=== PATIENT | female | born 1970 | race Caucasian/White ===

== ENCOUNTER 2017-04-05 15:15 | Emergency (ER) | payer OTHER ==
[2017-04-05 15:21] VITALS: BMI 20.3
--- NOTE | 2017-04-05 15:47 | PDOC ---
History of Present Illness - History of Present Illness Initial Comments: 04/05/17 15:50 The patient is a 46 year old female, with no significant past medical history, who presents to the emergency department, sent by PMD, for evaluation of persistent headache with diffuse body weakness for a couple of days. The patient states her headache is constant and diffuse. She denies dizziness. The patient states she has been experiencing difficulty speaking and moving at night before bed. The patient states she has also been experiencing a stiffness in her neck. She denies chest pain, shortness of breath, dizziness. She denies fever, chills , nausea, vomit, diarrhea and constipation. She denies dysuria, frequency, urgency and hematuria. Allergies: penicillins PCP - Dr. Riley Hernandez <Massiel Moyer - Last Filed: 04/05/17 16:45> <Clement Lackey - Last Filed: 04/05/17 19:23> - General Chief Complaint: Headache Stated Complaint: HEAD PAIN Time Seen by Provider: 04/05/17 15:31 Past History <Massiel Moyer - Last Filed: 04/05/17 16:45> - Surgical History Appendectomy: Yes - Reproductive History (#): 2 Para: 1 - Psycho/Social/Smoking Cessation Hx Suicidal Ideation: No Smoking History: Never smoked <Clement Lackey - Last Filed: 04/05/17 19:23> - Past Medical History Allergies/Adverse Reactions: Allergies Allergy/AdvReac Type Severity Reaction Status Date / Time Penicillins Allergy Verified 04/05/17 15:18 Home Medications: Ambulatory Orders NK [No Known Home Medication] 06/16/16 Review of Systems - Review of Systems Able to Perform ROS?: Yes Comments:: 04/05/17 16:50 GENERAL/CONSTITUTIONAL: (+) generalized weakness. No fever or chills. HEAD, EYES, EARS, NOSE AND THROAT: No change in vision. No ear pain or discharge. No sore throat. CARDIOVASCULAR: No chest pain or shortness of breath. RESPIRATORY: No cough, wheezing, or hemoptysis. GASTROINTESTINAL: No nausea, vomiting, diarrhea or constipation. GENITOURINARY: No dysuria, frequency, or change in urination. MUSCULOSKELETAL: (+) neck stiffness and diffuse body aches. No joint swelling. SKIN: No rash NEUROLOGIC: (+) headache and body weakness. No vertigo, loss of consciousness, or change in sensation. ENDOCRINE: No increased thirst. No abnormal weight change. HEMATOLOGIC/LYMPHATIC: No anemia, easy bleeding, or history of blood clots. ALLERGIC/IMMUNOLOGIC: No hives or skin allergy. <Massiel Moyer - Last Filed: 04/05/17 16:45> *Physical Exam - Vital Signs Last Vital Signs Temp Pulse Resp BP Pulse Ox 98 F 84 18 149/83 99 04/05/17 15:18 04/05/17 15:18 04/05/17 15:18 04/05/17 15:18 04/05/17 15:18 - Physical Exam Comments: 04/05/17 16:51 GENERAL: Awake, alert, and fully oriented, in no acute distress HEAD: No signs of trauma EYES: PERRLA, EOMI, sclera anicteric, conjunctiva clear ENT: Auricles normal inspection, hearing grossly normal, nares patent, oropharynx clear without exudates. Moist mucosa NECK: Normal ROM, supple, no lymphadenopathy, JVD, or masses LUNGS: Breath sounds equal, clear to auscultation bilaterally. No wheezes, and no crackles HEART: Regular rate and rhythm, normal S1 and S2, no murmurs, rubs or gallops ABDOMEN: Soft, nontender, normoactive bowel sounds. No guarding, no rebound. No masses EXTREMITIES: Normal range of motion, no edema. No clubbing or cyanosis. No cords, erythema, or tenderness NEUROLOGICAL: Cranial nerves II through XII grossly intact. Normal speech, normal gait SKIN: Warm, Dry, normal turgor, no rashes or lesions noted. <Massiel Moyer - Last Filed: 04/05/17 16:45> - Vital Signs Last Vital Signs Temp Pulse Resp BP Pulse Ox 98 F 84 18 149/83 99 04/05/17 15:18 04/05/17 15:18 04/05/17 15:18 04/05/17 15:18 04/05/17 15:18 <Clement Lackey - Last Filed: 04/05/17 19:23> ED Treatment Course - LABORATORY CBC & Chemistry Diagram: 04/05/17 16:01 04/05/17 16:01 <Massiel Moyer - Last Filed: 04/05/17 16:45> - LABORATORY CBC & Chemistry Diagram: 04/05/17 16:01 04/05/17 16:01 <Clement Lackey - Last Filed: 04/05/17 19:23> *DC/Admit/Observation/Transfer - Attestations Scribe Attestion: 04/05/17 16:52 Documentation prepared by Massiel Moyer, acting as biomedical service engineer for Clement Lackey DO <Massiel Moyer - Last Filed: 04/05/17 16:45> - Discharge Dispostion Admit: No - Attestations Physician Attestion: 04/05/17 15:31 I, Dr. Clement Lackey, attest that this document has been prepared under my direction and personally reviewed by me in its entirety. I further attest, that it accurately reflects all work, treatment, procedures and medical decision -making performed by me. <Clement Lackey - Last Filed: 04/05/17 19:23> Diagnosis at time of Disposition: Malaise Fatigue Qualifiers: Fatigue type: unspecified Qualified Code(s): R53.83 - Other fatigue - Discharge Dispostion Disposition: HOME Condition at time of disposition: Good - Referrals Referrals: Riley Hernandez MD [Primary Care Provider] - - Patient Instructions Printed Discharge Instructions: DI for Headache, DI for Fatigue Additional Instructions: [facility]- All of your tests are normal. It is not clear to me why you had this headache and weakness or inability to move. Follow up with your doctor in the morning. Return if worse or new symptoms occur Best- Dr. Clement Lackey
[2017-04-05 16:25] LABS: BASOPHIL 0.7 % (0-2.0); EOSINOPHIL 1.1 % (0-4.5); MCH 30.9 pg (25.7-33.7); MCHC 34.1 g/dl (32.0-36.0); MEAN CELL VOLUME 90.7 fl (80-96); MEAN PLT VOLUME 8.9 fl (7.5-11.1); NEUTROPHILS 64.4 % (42.8-82.8); PLATELET COUNT 208 K/MM3 (134-434); RDW 13.4 % (11.6-15.6); WHITE BLOOD COUNT 5.5 K/mm3 (4.0-10.0)
[2017-04-05 17:04] LABS: URINE APPEARANCE CLEAR; URINE BILIRUBIN NEGATIVE (NEGATIVE); URINE COLOR COLORLESS; URINE GLUCOSE (UA) NEGATIVE (NEGATIVE); URINE KETONE NEGATIVE (NEGATIVE); URINE LEUK ESTERASE NEGATIVE (NEGATIVE); URINE NITRITE NEGATIVE (NEGATIVE); URINE PROTEIN NEGATIVE (NEGATIVE); URINE UROBILINOGEN NEGATIVE E.U./dl (0.2-1.0)
[2017-04-05 17:07] LABS: URINE BLOOD 2+ (NEGATIVE)
[2017-04-05 17:10] LABS: URINE BACTERIA RARE /hpf (NONE SEEN); URINE RBC 4 /hpf (0-3); URINE WBC 1 /hpf (3-5)
[2017-04-05 17:53] LABS: INR 1.07 (0.82-1.09); PROTHROMBIN TIME (PATIENT) 11.8 SEC (9.98-11.88)
[2017-04-05 19:29] LABS: ALBUMIN 4.1 g/dl (3.4-5.0); ANION GAP 7 (8-16); CALCIUM 9.9 mg/dL (8.5-10.1); CO2 28 mmol/L (21-32); CREATININE 0.7 mg/dL (0.55-1.02); GLUCOSE,RANDOM 80 mg/dL (74-106); SGOT/AST 12 U/L (15-37)
[2017-04-05 19:31] LABS: ALK PHOS 57 U/L (45-117); BILIRUBIN,TOTAL 0.4 mg/dL (0.2-1.0); SGPT/ALT 19 U/L (12-78); TOT PROT 6.9 g/dl (6.4-8.2)
[2017-04-05 20:00] VITALS: BP 118/87; PULSE 77; TEMP 97.7
== END 2017-04-05 20:00 | disposition home or self-care (01) ==
LOC: JER 15:15
DX: R53.83 Other fatigue (principal)
CPT/HCPCS: 36415; 70450-TC; 71250-TC; 80053; 81003; 81015; 83690; 84703; 85025; 85610; 99283-25

== ENCOUNTER 2021-04-24 16:03 | Emergency (ER) | payer OTHER ==
[2021-04-24 16:14] VITALS: BP 121/72; PULSE 100; TEMP 98.6; BMI 25.8
== END 2021-04-24 17:38 | disposition home or self-care (01) ==
LOC: JERFT 16:03 → JER 16:03 → JERFT 17:38
DX: J45.909 Unspecified asthma, uncomplicated (principal)
CPT/HCPCS: 99281-25

== ENCOUNTER 2021-07-19 17:23 | Emergency (ER) | payer OTHER ==
[2021-07-19 17:30] VITALS: BP 107/73; PULSE 88; TEMP 98.4; BMI 20.3
[2021-07-19] MEDS ORDERED: METHOCARBAMOL 500 MG TABLET PO ONE (18:00)
[2021-07-19] MEDS ORDERED: IBUPROFEN 600 MG TABLET (FP) PO ONE ×2 (18:01→18:07)
[2021-07-19] MEDS ORDERED: METHOCARBAMOL 500 MG TABLET ONE (18:07)
== END 2021-07-19 23:28 | disposition home or self-care (01) ==
LOC: JERFT 17:23
DX: S16.1XXA Strain of muscle, fascia and tendon at neck level, initial encounter (principal); V49.40XA Driver injured in collision with unspecified motor vehicles in traffic accident, initial encounter
CPT/HCPCS: 70450-TC; 72125-TC; 99284-25

== ENCOUNTER 2022-09-30 12:27 | Emergency (ER) | payer OTHER ==
[2022-09-30 12:33] VITALS: BP 129/77; PULSE 98; RESP 18; TEMP 97.5; BMI 24.3
[2022-09-30] MEDS ORDERED: IBUPROFEN 600 MG TABLET (FP) PO ONE ×2 (13:32→13:36)
[2022-09-30] MEDS ORDERED: METHOCARBAMOL 500 MG TABLET PO ONE (13:32)
[2022-09-30] MEDS ORDERED: METHOCARBAMOL 500 MG TABLET ONE (13:36)
== END 2022-09-30 13:48 | disposition home or self-care (01) ==
LOC: JER 12:27 → JERFT 12:27
DX: R51.9 Headache, unspecified (principal); V89.2XXA Person injured in unspecified motor-vehicle accident, traffic, initial encounter; Y92.9 Unspecified place or not applicable
CPT/HCPCS: 99283-25

== ENCOUNTER 2022-11-03 15:01 | Emergency (ER) | payer OTHER ==
[2022-11-03 17:18] VITALS: BP 100/67; PULSE 95; RESP 18; TEMP 98; BMI 22.7
[2022-11-03] MEDS ORDERED: ACETAMINOPHEN 500 MG TABLET (FP) PO ONE (18:11)
[2022-11-03] MEDS ORDERED: ACETAMINOPHEN 500 MG TABLET (FP) ONE (19:06)
== END 2022-11-03 19:39 | disposition home or self-care (01) ==
LOC: JER 15:01 → JERFT 15:01
DX: M25.572 Pain in left ankle and joints of left foot (principal); M25.532 Pain in left wrist; M25.531 Pain in right wrist; M25.552 Pain in left hip; W01.0XXA Fall on same level from slipping, tripping and stumbling without subsequent striking against object, initial encounter
CPT/HCPCS: 73110-TC-LT-FY; 73110-TC-RT-FY; 73130-TC-LT-FY; 73130-TC-RT-FY; 73502-TC-LT-FY; 73610-TC-LT-FY; 73630-TC-LT; 99285-25

== ENCOUNTER 2023-06-24 10:58 | Emergency (ER) | payer OTHER ==
[2023-06-24 11:03] VITALS: BP 121/76; PULSE 97; RESP 18; TEMP 98.1; BMI 23.5
[2023-06-24] MEDS ORDERED: DEXAMETHASONE SOD PHOSPHATE 20 MG/5 ML VIAL IVPB ONE (11:39)
[2023-06-24] MEDS ORDERED: ALBUTEROL SO4 2.5/IPRATROPIUM 0.5 INH SOL 3 ML VIAL.NEB. NEB ONE ×3 (11:40→11:49)
[2023-06-24] MEDS ORDERED: IBUPROFEN 600 MG TABLET (FP) PO ONE ×2 (11:43→11:49)
[2023-06-24] MEDS ORDERED: DEXAMETHASONE SOD PHOSPHATE 10 MG/1 ML VIAL ONE (11:49)
[2023-06-24] MEDS ORDERED: ONDANSETRON *ODT* 4 MG TABLET SL ONE (11:51)
== END 2023-06-24 12:54 | disposition left against medical advice (07) ==
LOC: JER 10:58
PROC: 3E033NZ Introduction of Analgesics, Hypnotics, Sedatives into Peripheral Vein, Percutaneous Approach (ICD-10-PCS; principal; 2023-06-24)
PROC: 3E0F7GC Introduction of Other Therapeutic Substance into Respiratory Tract, Via Natural or Artificial Opening (ICD-10-PCS; 2023-06-24)
DX: R53.1 Weakness (principal); J06.9 Acute upper respiratory infection, unspecified; Z20.822 Contact with and (suspected) exposure to COVID-19
CPT/HCPCS: 0241U-QW; 93005; 93010; 99284-25; Q0162

== ENCOUNTER 2024-01-12 10:02 | Inpatient (IN) | payer OTHER ==
[2024-01-12 11:29] LABS: BASO % 1.1 % (0-2.0); EOS % 1.2 % (0-4.5); HEMATOCRIT 42.9 % (32.4-45.2); HEMOGLOBIN 14.5 GM/dL (10.7-15.3); LYMPH % 24.4 % (8-40); MCH 29.8 pg (25.7-33.7); MCHC 33.9 g/dl (32.0-36.0); MEAN CELL VOLUME 87.7 fl (80-96); MONO % 6.2 % (3.8-10.2); NEUT % 67.1 % (42.8-82.8); PLATELET COUNT 293 10^3/uL (134-434); RBC 4.88 M/mm3 (3.60-5.2); RDW 13.2 % (11.6-15.6); WHITE BLOOD COUNT 6.6 K/mm3 (4.0-10.0)
[2024-01-12 11:33] LABS: EPI CELLS 1 /uL (0-25.1); HYALINE CASTS 0 /uL (0-3.1); PH,URINE 7.5 (5.0-8.0); URINE APPEARANCE CLEAR; URINE BACTERIA 5 /uL (0-1359); URINE BILIRUBIN NEGATIVE (NEGATIVE); URINE COLOR YELLOW; URINE GLUCOSE (UA) NEGATIVE (NEGATIVE); URINE KETONE NEGATIVE (NEGATIVE); URINE LEUK ESTERASE NEGATIVE (NEGATIVE); URINE NITRITE NEGATIVE (NEGATIVE); URINE PROTEIN NEGATIVE (NEGATIVE); URINE RBC 21 /uL (0-23.9); URINE UROBILINOGEN 0.2 mg/dL (0.2-1.0); URINE WBC 1 /uL (0-25.8)
[2024-01-12 11:34] VITALS: BMI 22.1
[2024-01-12 11:49] LABS: POTASSIUM 4.1 mmol/L (3.5-5.1)
[2024-01-12 11:52] LABS: ALBUMIN 3.8 g/dl (3.4-5.0); BLOOD UREA NITROGEN 9.8 mg/dL (7-18); CALCIUM 9.9 mg/dL (8.5-10.1); MAGNESIUM 2.3 mg/dL (1.8-2.4)
[2024-01-12 11:55] LABS: CREATININE 0.8 mg/dL (0.55-1.3)
[2024-01-12 11:56] LABS: BILIRUBIN,TOTAL 0.7 mg/dL (0.2-1); TOT PROT 7.1 g/dl (6.4-8.2)
[2024-01-12] MEDS: SODIUM CHLORIDE 0.9% 500 ML INFUS.BAG IV STA (12:43)
[2024-01-12] MEDS ORDERED: ACETAMINOPHEN 325 MG TABLET (FP) ONE (13:36)
[2024-01-12] MEDS: ACETAMINOPHEN 325 MG TABLET (FP) PO ONE (13:41)
[2024-01-13] MEDS ORDERED: ACETAMINOPHEN INJECTION 100 ML IVPB ONE (04:00)
[2024-01-13] MEDS: ACETAMINOPHEN 1000 MG/100 ML BAG IVPB ONE (04:07)
[2024-01-13 07:32] LABS: BASO % 0.6 % (0-2.0); HEMATOCRIT 41.7 % (32.4-45.2); HEMOGLOBIN 14.4 GM/dL (10.7-15.3); LYMPH % 33.2 % (8-40); MCH 30.2 pg (25.7-33.7); MCHC 34.5 g/dl (32.0-36.0); MEAN CELL VOLUME 87.5 fl (80-96); MEAN PLT VOLUME 8.3 fl (7.5-11.1); NEUT % 57.2 % (42.8-82.8); PLATELET COUNT 291 10^3/uL (134-434); RBC 4.77 M/mm3 (3.60-5.2); RDW 13.2 % (11.6-15.6)
[2024-01-13 07:57] LABS: ALBUMIN 3.6 g/dl (3.4-5.0); BLOOD UREA NITROGEN 12.2 mg/dL (7-18); CALCIUM 9.5 mg/dL (8.5-10.1)
[2024-01-13 08:00] LABS: CREATININE 0.7 mg/dL (0.55-1.3)
[2024-01-13 08:02] LABS: BILIRUBIN,TOTAL 0.8 mg/dL (0.2-1); TOT PROT 6.8 g/dl (6.4-8.2)
[2024-01-14 06:50] LABS: BASO % 0.9 % (0-2.0); EOS % 2.7 % (0-4.5); HEMATOCRIT 42.5 % (32.4-45.2); HEMOGLOBIN 14.5 GM/dL (10.7-15.3); LYMPH % 38.2 % (8-40); MCH 29.8 pg (25.7-33.7); MEAN CELL VOLUME 87.6 fl (80-96); MEAN PLT VOLUME 8.3 fl (7.5-11.1); MONO % 7.2 % (3.8-10.2); PLATELET COUNT 278 10^3/uL (134-434); RBC 4.86 M/mm3 (3.60-5.2); RDW 13.3 % (11.6-15.6); WHITE BLOOD COUNT 6.9 K/mm3 (4.0-10.0)
[2024-01-14 07:00] LABS: POTASSIUM 3.9 mmol/L (3.5-5.1)
[2024-01-14 07:02] LABS: ALBUMIN 3.7 g/dl (3.4-5.0)
[2024-01-14 07:07] LABS: BILIRUBIN,TOTAL 0.8 mg/dL (0.2-1)
[2024-01-14 07:09] LABS: TOT PROT 6.8 g/dl (6.4-8.2)
[2024-01-14 07:24] LABS: BLOOD UREA NITROGEN 13.2 mg/dL (7-18); CREATININE 0.8 mg/dL (0.55-1.3)
[2024-01-14] MEDS: LEVOTHYROXINE NA 25 MCG TABLET (FP) PO SCH (12:54)
[2024-01-14] MEDS: ACETAMINOPHEN 325 MG TABLET (FP) PO PRN (12:54)
[2024-01-15 07:24] LABS: CHOLESTEROL 292 mg/dL (50-200)
[2024-01-15 07:25] LABS: LDL CHOLESTEROL (ONLY SJRH) 201 mg/dL (5-100)
[2024-01-15 07:26] LABS: HDL CHOLESTEROL 58 mg/dL (40-60)
[2024-01-15] MEDS: SODIUM CHLORIDE 1,000 ML IV SCH (17:59)
[2024-01-16 09:51] LABS: BASO % 0.8 % (0-2.0); EOS % 2.9 % (0-4.5); HEMATOCRIT 40.4 % (32.4-45.2); HEMOGLOBIN 14.1 GM/dL (10.7-15.3); LYMPH % 30.2 % (8-40); MCH 30.8 pg (25.7-33.7); MEAN CELL VOLUME 87.8 fl (80-96); MEAN PLT VOLUME 8.4 fl (7.5-11.1); MONO % 6.1 % (3.8-10.2); PLATELET COUNT 276 10^3/uL (134-434); RDW 13.4 % (11.6-15.6); WHITE BLOOD COUNT 6.9 K/mm3 (4.0-10.0)
[2024-01-16 10:24] LABS: POTASSIUM 4.1 mmol/L (3.5-5.1)
[2024-01-16 10:26] LABS: CALCIUM 9.3 mg/dL (8.5-10.1)
[2024-01-16 10:27] LABS: ALBUMIN 3.3 g/dl (3.4-5.0); BLOOD UREA NITROGEN 12.2 mg/dL (7-18)
[2024-01-16 10:30] LABS: CREATININE 0.8 mg/dL (0.55-1.3)
[2024-01-16 10:31] LABS: BILIRUBIN,TOTAL 0.6 mg/dL (0.2-1); TOT PROT 6.2 g/dl (6.4-8.2)
[2024-01-16] MEDS: ATORVASTATIN CA 40 MG TABLET (FP) PO SCH (21:16)
[2024-01-16] MEDS: SODIUM CHLORIDE 1,000 ML IV SCH (23:05)
[2024-01-16] MEDS: FAMOTIDINE 20 MG TABLET PO ONE (23:58)
[2024-01-17] MEDS: FAMOTIDINE 20 MG TABLET PO ONE (00:08)
[2024-01-17 06:51] LABS: HEMATOCRIT 39.9 % (32.4-45.2); HEMOGLOBIN 13.3 GM/dL (10.7-15.3); MCH 29.6 pg (25.7-33.7); MCHC 33.4 g/dl (32.0-36.0); MEAN CELL VOLUME 88.6 fl (80-96); MEAN PLT VOLUME 8.4 fl (7.5-11.1); PLATELET COUNT 274 10^3/uL (134-434); RDW 13.1 % (11.6-15.6); WHITE BLOOD COUNT 7.3 K/mm3 (4.0-10.0)
[2024-01-17 07:10] LABS: POTASSIUM 3.9 mmol/L (3.5-5.1)
[2024-01-17 07:16] LABS: ALBUMIN 3.3 g/dl (3.4-5.0); BLOOD UREA NITROGEN 15.4 mg/dL (7-18); CALCIUM 8.9 mg/dL (8.5-10.1)
[2024-01-17 07:19] LABS: CREATININE 0.7 mg/dL (0.55-1.3); PHOSPHOROUS 3.2 mg/dL (2.5-4.9)
[2024-01-17 07:21] LABS: BILIRUBIN,TOTAL 0.4 mg/dL (0.2-1)
[2024-01-17] MEDS: ATORVASTATIN CA 40 MG TABLET (FP) PO SCH (22:40)
[2024-01-18 07:08] LABS: HEMOGLOBIN 13.7 GM/dL (10.7-15.3); MCH 29.7 pg (25.7-33.7); MCHC 33.5 g/dl (32.0-36.0); MEAN CELL VOLUME 88.6 fl (80-96); MEAN PLT VOLUME 8.5 fl (7.5-11.1); PLATELET COUNT 266 10^3/uL (134-434); RBC 4.62 M/mm3 (3.60-5.2); RDW 13.4 % (11.6-15.6); WHITE BLOOD COUNT 6.7 K/mm3 (4.0-10.0)
[2024-01-18 07:44] LABS: POTASSIUM 4.2 mmol/L (3.5-5.1)
[2024-01-18 07:55] LABS: BLOOD UREA NITROGEN 12.2 mg/dL (7-18); CALCIUM 9.6 mg/dL (8.5-10.1); MAGNESIUM 2.1 mg/dL (1.8-2.4)
[2024-01-18 07:56] LABS: ALBUMIN 3.3 g/dl (3.4-5.0)
[2024-01-18 07:58] LABS: CREATININE 0.7 mg/dL (0.55-1.3); PHOSPHOROUS 3.9 mg/dL (2.5-4.9)
[2024-01-18 08:00] LABS: BILIRUBIN,TOTAL 0.4 mg/dL (0.2-1); TOT PROT 6.1 g/dl (6.4-8.2)
[2024-01-19 11:04] VITALS: BP 114/68; PULSE 105; RESP 19; TEMP 98
== END 2024-01-19 14:39 | disposition home or self-care (01) | DRG 204 ==
LOC: JER 10:02 → OBSVTOIN 12:01 → JERBED 12:01 → J4S 01-13 15:42
PROVIDERS: ADMIT Internal Medicine; ATTEND Internal Medicine
DX: I95.1 Orthostatic hypotension (principal); E03.9 Hypothyroidism, unspecified; E78.5 Hyperlipidemia, unspecified; G25.81 Restless legs syndrome; J45.909 Unspecified asthma, uncomplicated; M79.7 Fibromyalgia; G43.909 Migraine, unspecified, not intractable, without status migrainosus; E86.0 Dehydration
CPT/HCPCS: 0241U-QW; 36415; 70450-TC; 71045-TC-FY; 80053; 80061; 81003; 82533; 82550; 83036; 83735; 84100; 84439; 84443; 84481; 84484; 85025; 85027; 86376; 86800; 87086; 93005; 93010; 93306-TC; 93351; 93880-TC; 97116-GP; 97162-GP; 99285-25; J0131

== ENCOUNTER 2024-04-17 18:40 | Emergency (ER) | payer OTHER ==
[2024-04-17 18:53] VITALS: BP 111/79; PULSE 91; RESP 18; TEMP 97.8; BMI 21.2
[2024-04-17 21:03] LABS: BASO % 0.9 % (0-2.0); EOS % 2.9 % (0-4.5); HEMATOCRIT 40.9 % (32.4-45.2); HEMOGLOBIN 14.1 GM/dL (10.7-15.3); MCH 29.9 pg (25.7-33.7); MCHC 34.4 g/dl (32.0-36.0); MEAN CELL VOLUME 87.1 fl (80-96); MEAN PLT VOLUME 8.2 fl (7.5-11.1); MONO % 6.3 % (3.8-10.2); NEUT % 52.9 % (42.8-82.8); PLATELET COUNT 272 10^3/uL (134-434); RDW 13.8 % (11.6-15.6); WHITE BLOOD COUNT 7.5 K/mm3 (4.0-10.0)
[2024-04-17 21:17] LABS: INR 0.98 (0.83-1.09); PROTHROMBIN TIME (PATIENT) 11.1 SEC (9.7-13.0)
[2024-04-17 21:20] LABS: ACTIVATED PTT 45.3 SECONDS (25.2-36.5)
[2024-04-17 21:24] LABS: CALCIUM 10.1 mg/dL (8.5-10.1)
[2024-04-17 21:25] LABS: MAGNESIUM 2.2 mg/dL (1.8-2.4)
[2024-04-17 21:27] LABS: CREATININE 0.7 mg/dL (0.55-1.3)
[2024-04-17 21:28] LABS: PHOSPHOROUS 3.8 mg/dL (2.5-4.9)
[2024-04-17 21:29] LABS: BILIRUBIN,TOTAL 0.5 mg/dL (0.2-1); TOT PROT 6.9 g/dl (6.4-8.2)
[2024-04-17 21:32] LABS: N-TERMINAL BNP 35.4 pg/ml (5-125)
== END 2024-04-17 21:46 | disposition home or self-care (01) ==
LOC: JER 18:40
DX: I20.9 Angina pectoris, unspecified (principal); R07.89 Other chest pain; R11.2 Nausea with vomiting, unspecified; R06.02 Shortness of breath; M79.89 Other specified soft tissue disorders
CPT/HCPCS: 36415; 71046-TC-FY; 80053; 83735; 83880; 84100; 84484; 85025; 85610; 85730; 93005; 93010; 99285-25